=== PATIENT | male | born 1995 | race African-American/Black ===

== ENCOUNTER 2019-05-20 05:06 | Emergency (ER) | payer OTHER ==
[~2019-05-20] VITALS: Ht 165.1 cm; Wt 52.2 kg
[~2019-05-20 05:06] MED LIST: NOHOMEMEDICATIONS; PREDNISONE 20 M20 MG PO; VENTOLIN HFA 1818 GM INH
[2019-05-20] MEDS ORDERED: PRILOSEC OTC20 MG PO (06:05)
[2019-05-20] MEDS ORDERED: ONDANSETRON ODT8 MG PO (06:13)
[2019-05-20 06:23] VITALS: BP 129/92
--- NOTE | 2019-05-20 08:16 | EKG ---
[address] [address] ELECTROCARDIOGRAM REPORT Name: ANANDA CHO [id number] Admission: 05/20/19 Attend Phys: Discharge: 05/20/19 Date of : 89 Report #: [id number] THIS REPORT FOR: //name// ED Test Date: 2019-05-20 Test Time: 05:24:23 Pat Name: ANANDA CHO Department: Room: Gender: [employer]: jenny : 1995 Requested By: Naeem Guerrier Order Number: [id number] MD: Jeffry Howard Measurements Intervals [place] Rate: 85 P: 80 OK: 145 QRS: 85 QRSD: 101 T: 60 QT: 353 QTc: 420 Interpretive Statements Sinus rhythm ST elev, probable normal early repol pattern Compared to ECG 08/21/2015 02:21:45 ST (T wave) deviation now present Sinus arrhythmia no longer present Electronically Signed On 05-20-2019 8:15:57 CDT by Jeffry Howard [email or web address] <ELECTRONICALLY SIGNED> By: Jeffry Howard MD 05/20/19 0815 3 Jeffry Howard MD /DEREK
== END 2019-05-20 06:24 | disposition home or self-care (01) ==
LOC: ER 05:06
DX: F10.129 Alcohol abuse with intoxication, unspecified (principal); R10.13 Epigastric pain; J45.909 Unspecified asthma, uncomplicated; F17.210 Nicotine dependence, cigarettes, uncomplicated; Y90.9 Presence of alcohol in blood, level not specified